=== PATIENT | male | born 1965 | race Caucasian/White ===

== ENCOUNTER 2024-01-19 00:32 | Day surgery (SDC) | payer BC, SELFPAY ==
[2024-01-01 14:21] VITALS: BMI 22.8
[2024-01-19 06:16] VITALS: BP 108/81; PULSE 70; RESP 16; TEMP 36.2; O2SAT 100
[2024-01-19] MEDS: LACTATED RINGERS 1,000 ML 150 ML IV CONT (06:25)
--- NOTE | 2024-01-19 06:54 | WPDANESEPPF ---
Anes - Initial Pre Proc Eval Procedure: Operation Date: 01/19/24 07:30 Proposed Procedures p Colonoscopy - Ashok Rockwell MD Date/Time: 01/19/24 06:54 Surgeon: Ashok Rockwell MD Pre Op Diagnosis: History colon polyps Patient Data Age: 58 Gender: M Height: 1.75 m Weight: 69.9 kg Last Vital Signs Temp 97.1 F L 01/19/24 06:16 Pulse 70 01/19/24 06:16 Resp 16 01/19/24 06:16 BP 108/81 01/19/24 06:16 Pulse Ox 100 01/19/24 06:16 O2 Del Method Room Air 01/19/24 06:16 Allergies Allergy/AdvReac Type Severity Reaction Status Date / Time No Known Allergies Allergy Verified 01/19/24 06:14 Home Medications Medication Instructions Recorded Confirmed Type No Home Medications 01/01/24 01/19/24 History Patient hx anesthesia problems: none Family hx anesthesia problems: none Results Review: All pre-operative results and documents have been reviewed as part of the pre-operative evaluation. COUNTS INCLUDE 234 BEDS AT THE [facility] Social History Social History Smoking status: Never smoker Alcohol intake: never Substance use: never Substance use type: does not use Living arrangements: alone Spiritual care concerns: No Anes - Eval Final PreProcedure Day of Procedure 01/19/24 06:54 Patient weight: normal Heart: regular rate and rhythm Lungs: clear to auscultation Airway: Mallampati scale class II Neurological: alert and oriented Last oral intake: >/= 8 hours ASA classification: II Emergent: no Anesthetic plan: proceed Anesthesia type and monitoring: general GIVS and standard monitoring Results Review: All pre-operative results and documents have been reviewed as part of the pre-operative evaluation. RONDA on CPAP, unknown settings. Informed Consent: The patient's anesthetic plan and its attendant risks and benefits were discussed with the patient/family/POA. Questions were solicited and answers provided to the satisfaction of the patient/family/POA.
--- NOTE | 2024-01-19 07:22 | PM.HPGS ---
History of Present Illness History of Present Illness Consent: Risks, benefits, and alternatives have been discussed and questions answered. Patient agrees to proceed with procedure. Chief complaint: colon screening Narrative: Hernan Bartlett is a 58 year old male here for screening colonoscopy, last one 10 years ago Review of Systems Review of Systems: All systems reviewed & are unremarkable except as noted in HPI and below PMFSH Past Medical History Medical History (Updated 01/19/24 @ 07:22 by Ashok Rockwell MD) Colon cancer screening Social History Social History Smoking status: Never smoker Alcohol intake: never Substance use: never Substance use type: does not use Living arrangements: alone Spiritual care concerns: No Meds Home Medications and Allergies Home Medications Medication Instructions Recorded Confirmed Type No Home Medications 01/01/24 01/19/24 History Allergies Allergy/AdvReac Type Severity Reaction Status Date / Time No Known Allergies Allergy Verified 01/19/24 06:14 Vital Signs Vital Signs - 24 hr 01/19/24 06:16 Temperature 97.1 F L Pulse Rate 70 Respiratory Rate 16 Blood Pressure 108/81 Pulse Oximetry 100 Oxygen Delivery Room Air Exam Const: General: comfortable and no acute distress HENMT: Face/Nose/Sinus: Normal nares present Eyes: General: appearance normal, both eyes and all related structures Neck: Neck: no JVD Resp: Auscultation: clear to auscultation bilaterally Cardio: Rate: regular rate Rhythm: regular rhythm GI: Inspection: non-distended GI Palp: Yes Soft to palpation Skin: General skin exam: normal color Neuro: General: gait normal Speech: normal speech Extrem: General: normal to inspection Psych: Mental Status: mental status grossly normal Assessment and Plan Assessment and plan (1) Colon cancer screening: Code(s): Z12.11 - Encounter for screening for malignant neoplasm of colon Status: Acute Assessment and Plan: colonoscopy
[2024-01-19 07:34] VITALS: BP 101/66; PULSE 62; RESP 18; O2SAT 98
[2024-01-19 07:44] VITALS: BP 105/66; PULSE 58; RESP 19; O2SAT 100
[2024-01-19 07:54] VITALS: BP 117/73; PULSE 60; RESP 16; O2SAT 100
== END 2024-01-19 08:05 | disposition home or self-care (01) ==
PROVIDERS: PCP Internal Medicine; Visit Provider Internal Medicine Gastroenterology
PROC: 0DJD8ZZ Inspection of Lower Intestinal Tract, Via Natural or Artificial Opening Endoscopic (ICD-10-PCS; CPT 45378; principal; 2024-01-19 07:30)
DX: Z12.11 Encounter for screening for malignant neoplasm of colon (principal); K57.30 Diverticulosis of large intestine without perforation or abscess without bleeding; K64.8 Other hemorrhoids
CPT/HCPCS: 45378; J2704; J7120